=== PATIENT | female | born 1930 | race Caucasian/White ===

== ENCOUNTER → 2021-01-15 | Outpatient (CLI) | payer MEDICARE, OTHER | LOC: DX 11:49 | PROVIDERS: ATTEND Student in an Organized Health Care Education/Training Program | DX: I10 Essential (primary) hypertension (principal); I50.9 Heart failure, unspecified; I51.7 Cardiomegaly; I73.9 Peripheral vascular disease, unspecified; Z78.0 Asymptomatic menopausal state; Z00.8 Encounter for other general examination | CPT/HCPCS: 76604; 77080; 93306 ==